=== PATIENT | female | born 1955 | race Caucasian/White ===

== ENCOUNTER 2016-05-06 09:15 | Emergency (ER) | payer OTHER ==
[~2016-05-06] VITALS: Ht 175.3 cm; Wt 80.0 kg
[2016-05-06] MEDS ORDERED: DIAZEPAM 5 MG/ML, 2ML IVPush ONE (10:30)
[2016-05-06] MEDS ORDERED: SODIUM CHLORIDE FLUSH 10ML SYR IVF ONE (10:30)
[2016-05-06] MEDS ORDERED: KETOROLAC 30 MG/1 ML IVPush ONE (10:30)
[2016-05-06] MEDS ORDERED: ONDANSETRON 2MG/ML, 2ML IVPush ONE (10:30)
[2016-05-06] MEDS ORDERED: ONDANSETRON 2MG/ML, 2ML ONE (11:09)
[2016-05-06] MEDS ORDERED: KETOROLAC 30 MG/1 ML ONE (11:09)
[2016-05-06] MEDS ORDERED: DIAZEPAM 5 MG/ML, 2ML ONE (11:09)
[2016-05-06] MEDS ORDERED: OXYcodone/APAP 5/325MG TABLET ONE (12:43)
[2016-05-06 12:45] VITALS: BP 98/65
[2016-05-06] MEDS ORDERED: HYDROcodone/APAP 5/325 TABLET ONE (12:49)
[2016-05-06] MEDS ORDERED: HYDROcodone/APAP 5/325 TABLET PO ONE (13:00)
== END 2016-05-06 13:09 | disposition home or self-care (01) ==
LOC: ED 09:38
DX: S39.012A Strain of muscle, fascia and tendon of lower back, initial encounter (principal); M54.41 Lumbago with sciatica, right side; X58.XXXA Exposure to other specified factors, initial encounter; Y93.89 Activity, other specified; Y92.89 Other specified places as the place of occurrence of the external cause; Y99.9 Unspecified external cause status
CPT/HCPCS: 72110; 73502; 96374; 96375; 99284; J1885; J2405; J3360